=== PATIENT | female | born 1970 | race Caucasian/White ===

== ENCOUNTER → 2017-01-02 | Outpatient (CLI) | payer OTHER ==
[~2017-01-02] MED LIST: ADVIL MIGRAINE200 MG PO; PRILOSEC OTC20 MG PO; TYLENOL EXTRA500 MG PO
== END | disposition home or self-care (01) ==
LOC: CDC 15:24
DX: I49.9 Cardiac arrhythmia, unspecified (principal); D36.9 Benign neoplasm, unspecified site
CPT/HCPCS: 93000

== ENCOUNTER 2017-01-11 05:15 | Day surgery (SDC) | payer OTHER ==
[~2017-01-11] VITALS: Ht 165.1 cm; Wt 90.7 kg
[2017-01-11 05:59] VITALS: BP 139/82
[2017-01-11 12:40] VITALS: BP 132/83
== END 2017-01-11 13:08 | disposition home or self-care (01) ==
LOC: SDC 05:15
PROC: 0HBU0ZZ Excision of Left Breast, Open Approach (ICD-10-PCS; principal; 2017-01-11)
DX: D24.2 Benign neoplasm of left breast (principal); K21.9 Gastro-esophageal reflux disease without esophagitis
CPT/HCPCS: 88307; J0131; J0330; J1100; J2250; J2405; J2765; J3010; S0020